=== PATIENT | female | born 1960 | race Caucasian/White ===

== ENCOUNTER 2018-02-23 00:38 | Emergency (ER) | payer BC, SELFPAY ==
[2018-02-23] MEDS ORDERED: Ondansetron HCl/PF 4 MG/2 ML Vial ONE (01:03)
[2018-02-23 01:20] LABS: Band 1 % (5-11); Hemoglobin 13.7 g/dL (12.0-16.0); Lymphocytes 57 % (21-51); MDiff Complete? YES; Mean Corpuscular HGB CONC 31.7 g/dL (32.0-36.0); Mean Corpuscular Hemoglobin 29.1 pg (27.0-31.0); Mean Corpuscular Volume 91.8 fL (78.0-98.0); Mean Platelet Volume 10.4 fL (7.4-10.4); Monocytes 2 % (0-10); Neutrophil 36 % (42-75); PLT Morphology Comment Appears Adequate; Platelet Count 267 thou/uL (130-400); RBC Distribution Width 11.5 % (11.5-14.5); RBC Morphology Normal; Reactive Lymphocytes 4 % (0-10); Red Blood Cell (RBC) Count 4.72 mill/uL (4.20-5.40); White Blood Cell (WBC) Count 12.4 thou/uL (4.8-10.8)
[2018-02-23 01:21] LABS: Acetaminophen Less than 6.0 mcg/mL (10.0-30.0); Alcohol 227 mg/dL (Less than 10); CK (CPK) 204 U/L (29-168); Salicylate Less than 8.0 mg/dL (15.0-30.0)
[2018-02-23 01:23] LABS: ALT (SGPT) 31 U/L (8-55); AST (SGOT) 37 U/L (5-34); Albumin 4.1 g/dL (3.5-5.0); Alkaline Phosphatase 99 U/L (40-150); Anion Gap 17 mmol/L (10-20); BUN (Urea Nitrogen) 7 mg/dL (9.8-20.1); Bilirubin, Total 0.3 mg/dL (0.2-1.2); Calc. Creatinine Clearance 0 mL/min (70-130); Calcium 8.8 mg/dL (7.8-10.44); Carbon Dioxide 21 mmol/L (22-29); Chloride 100 mmol/L (98-107); Estimated GFR-MDRD 78; Globulin 3.3 g/dL (2.4-3.5); Glucose 179 mg/dL (70-105); Potassium 3.4 mmol/L (3.5-5.1); Protein, Total 7.4 g/dL (6.0-8.3); Sodium 135 mmol/L (136-145)
[2018-02-23 01:26] LABS: CKMB 3.3 ng/mL (0-6.6); Troponin I Less than 0.010 ng/mL (< 0.028)
[2018-02-23 02:36] LABS: Bilirubin Negative (Negative); Blood, Urine Negative (Negative); Clarity Clear (Clear); Glucose, Urine (Dipstick) Negative (Negative); Leukocyte Negative (Negative); Nitrite Negative (Negative); Protein, Urine (Dipstick) Negative (Neg-Trace); Urobilinogen 0.2 mg/dL (0.2-1.0)
[2018-02-23 02:49] LABS: Cocaine Metabolite Screen Not Detected (NotDetected); THC/Cannabinoid Screen Detected (NotDetected)
[2018-02-23 02:50] LABS: Amphetamine Not Detected (NotDetected); Barbiturates Screen Not Detected (NotDetected); Benzodiazepine Screen Not Detected (NotDetected); Medtox Control Line Valid? VALID (VALID); Methadone Not Detected (NotDetected); Methamphetamine Not Detected (NotDetected); Opiate Screen Not Detected (NotDetected); Oxycodone Screen Not Detected (NotDetected); Phencyclidine (PCP) Not Detected (NotDetected); Tricyclic Screen Not Detected (NotDetected)
--- NOTE | 2018-02-23 08:54 | RAD ---
PORTABLE CHEST: Date: 02/23/18 PROVIDED CLINICAL HISTORY: Altered mental status. FINDINGS: Cardiac and mediastinal silhouette is within normal limits. Lungs appear clear. No pleural fluid or p neumothorax apparent. IMPRESSION: No evidence for an acute cardiopulmonary process. POS: [facility]
--- NOTE | 2018-02-23 09:42 | CT ---
PRELIMINARY REPORT/[facility]/EMERGENTY AFTER-HOURS PROCEDURE CT Head Without Intravenous Contrast CLINICAL HISTORY: 58 years old, female; Injury or trauma; Fall; Initial encounter; Abrasion; Face and forehead; Injury details: PT had been drinking "6-8 beers" and when she went to step out of the truck she fell on her face. She was able to get up but when her partner was looking at her facial lac he noticed her being less responsive so brought her to the er. TECHNIQUE: Axial computed tomography images of the head/brain without intravenous contrast. All CT scans at this facility use at least one of these dose optimization techniques: automated exposure control; mA and/ or kV adjustment per patient size (includes targeted exams where dose is matched to clinical indicati on); or iterative reconstruction. Coronal and sagittal reformatted images were created and reviewed. COMPARISON: No relevant prior studies available. FINDINGS: Brain: No brain edema. No intracranial hemorrhage. Ventricles: Normal. No ventriculomegaly. Bones/joints: Normal. No acute fracture. Sinuses: Normal as visualized. No acute sinusitis. Mastoid air cells: Normal as visualized. No mastoid effusion. Soft tissues: Normal. IMPRESSION: No acute brain findings. Thank you for allowing us to participate in the care of your patient. Dictated and Authenticated by: Hai Rick MD 02/23/2018 1:54 AM Central Time ([place]) FINAL REPORT EMERGENCY AFTER HOURS CT BRAIN: Date: 02/23/18 IMPRESSION: I agree with the preliminary interpretation given by Kathryn. No evidence for intracranial hemorrhage or mass effect. Minimal left frontal scalp swelling. POS: [facility]
--- NOTE | 2018-02-23 09:44 | CT ---
PRELIMINARY REPORT/[facility]/EMERGENTY AFTER-HOURS PROCEDURE CT Maxillofacial Without Intravenous Contrast CLINICAL HISTORY: 58 years old, female; Injury or trauma; Fall; Initial encounter; Abrasion; Cheek bone; Right; Injury date: 02/23/18; Injury details: PT had been drinking "6-8 beers" and when she went to step out of the truck she fell on her face. She was able to get up but when her partner was looking at her facial lac he noticed her being less responsive so brought her to the er. TECHNIQUE: Axial computed tomography images of the face without intravenous contrast. All CT scans at this facility use at least one of these dose optimization techniques: automated expos ure control; mA and/or kV adjustment per patient size (includes targeted exams where dose is matched to clinical indication); or iterative reconstruction. Coronal and sagittal reformatted images were created and reviewed. COMPARISON: No relevant prior studies available. FINDINGS: Bones/joints: There is symmetric partial anterior translation of the heads of the mandibular condyles with respect to the mandibular fossa of the temporal bones with closed jaw, potentially related to f orward movement of the jaw by the patient. No overt dislocation. No fracture. Soft tissues: See Dental Finding. Orbits: Normal. Globes are unremarkable. Sinuses: Normal. No air-fluid levels. Dental: Lucency surrounding the apex of the #5 tooth with lateral cortical erosion/breakthrough may r epresent a periapical dental abscess. No overlying soft tissue inflammation or abscess. IMPRESSION: 1. Lucency surrounding the apex of the #5 tooth with lateral cortical erosion/breakthrough may repres ent a periapical dental abscess. No overlying soft tissue inflammation or abscess. 2. No fracture. Thank you for allowing us to participate in the care of your patient. Dictated and Authenticated by: Hai Rick MD 02/23/2018 2:05 AM Central Time ([place] FINAL REPORT EMERGENCY AFTER HOURS CT OF THE FACIAL BONES: Date: 02/23/18 IMPRESSION: I agree with the preliminary interpretation given by Kathryn. POS: [facility]
--- NOTE | 2018-02-23 09:46 | CT ---
PRELIMINARY REPORT/[facility]/EMERGENTY AFTER-HOURS PROCEDURE CT Cervical Spine Without Intravenous Contrast CLINICAL HISTORY: 58 years old, female; Injury or trauma; Fall; Initial encounter; Abrasion; Injury date: 02/23/2018; In jury details: PT had been drinking "6-8 beers" and when she went to step out of the truck she fell on her face. She was able to get up but when her partner was looking at her facial lac he noticed her b eing less responsive so brought her to the er. TECHNIQUE: Axial computed tomography images of the cervical spine without intravenous contrast. All CT scans at this facility use at least one of these dose optimization techniques: automated exposure control; mA and/or kV adjustment per patient size (includes targeted exams where dose is matched to clinical jess cation); or iterative reconstruction. Coronal and sagittal reformatted images were created and reviewed. COMPARISON: No relevant prior studies available. FINDINGS: Vertebrae: No fracture. Discs/Spinal canal/Neural foramina: No spinal stenosis. No neural foraminal narrowing. Soft tissues: Unremarkable. Lung apices: Pulmonary emphysema. IMPRESSION: No fracture. Thank you for allowing us to participate in the care of your patient. Dictated and Authenticated by: Hai Rick MD 02/23/2018 1:57 AM Central Time ([place] FINAL REPORT EMERGENCY AFTER HOURS CT CERVICAL SPINE: Date: 02/23/18 IMPRESSION: I agree with the preliminary interpretation given by Kathryn. No evidence for fracture or traumatic subl uxation. Cervical degenerative changes are seen. POS: [facility]
== END 2018-02-23 07:13 | disposition home or self-care (01) ==
LOC: NAV ERS 00:38
DX: S01.81XA Laceration without foreign body of other part of head, initial encounter (principal); F10.129 Alcohol abuse with intoxication, unspecified; J45.909 Unspecified asthma, uncomplicated; F17.210 Nicotine dependence, cigarettes, uncomplicated; W17.89XA Other fall from one level to another, initial encounter
CPT/HCPCS: 12013; 70450; 70486; 71045; 72125; 80053; 80306; 80307; 81003; 82553; 84484; 85025; 93005; 96361; 96374; J2405

== ENCOUNTER 2019-04-06 03:37 | Emergency (ER) | payer BC ==
[2019-04-06] MEDS ORDERED: Clindamycin 150 MG CAP ONE (04:18)
[2019-04-06] MEDS ORDERED: HYDROcodone/Acetaminophen 5/325 mg Tablet ONE (04:18)
[2019-04-06] MEDS ORDERED: Ketorolac Tromethamine 60 MG/2 ML VIAL ONE (04:18)
== END 2019-04-06 04:45 | disposition home or self-care (01) ==
LOC: NAV ERS 03:37
DX: K04.7 Periapical abscess without sinus (principal); L03.211 Cellulitis of face; E78.5 Hyperlipidemia, unspecified; E78.00 Pure hypercholesterolemia, unspecified; J45.909 Unspecified asthma, uncomplicated; F17.210 Nicotine dependence, cigarettes, uncomplicated; Z79.899 Other long term (current) drug therapy
CPT/HCPCS: 96372; 99282; J1885